=== PATIENT | male | born 1995 | race African-American/Black ===

== ENCOUNTER 2016-05-16 23:08 | Emergency (ER) | payer OTHER ==
[~2016-05-16 23:08] MED LIST: nohome
[2016-05-17] LABS: BASOPHIL COUNT 0.1 K/uL (0-0.1); EOSINOPHIL (%) 7.3 % (0-5); EOSINOPHIL COUNT 0.6 K/uL (0-0.3); HEMATOCRIT 44.5 % (38.0-50.0); IMMATURE GRANULOCYTE (%) 0.3 % (0.0-0.7); IMMATURE GRANULOCYTE COUNT 0.3 K/uL; LYMPHOCYTE COUNT 2.2 K/uL (1.0-2.8); MCH 28.7 PG (29.0-34.0); MCHC 35.7 G/DL (30.0-36.0); MCV 80.3 FL (86-99); MEAN PLAT.VOLUME 9.9 uM^3 (9.0-12.4); MONOCYTE (%) 5.6 % (3-12); MONOCYTE COUNT 0.5 K/uL (0-0.8); NEUTROPHIL (%) 61.2 % (45-76); NEUTROPHIL COUNT 5.3 K/uL (1.8-6.4); PLATELET COUNT 226 K/uL (156-360); RBC DIS.WIDTH-CV 13.1 % (11.8-14.6); RBC DIS.WIDTH-SD 38.1 % (39-53); RED BLOOD COUNT 5.54 M/uL (4.00-5.50); WHITE BLOOD COUNT 8.6 K/uL (4.1-10.2)
[2016-05-17 00:05] LABS: AMYLASE 74 IU/L (1-118); CHLORIDE 99 mEq/L (99-109); POTASSIUM 3.8 mEq/L (3.7-5.4); SODIUM 136 mEq/L (136-147)
[2016-05-17 00:07] LABS: GLUCOSE 87 mg/dL (70-99)
[2016-05-17 00:08] LABS: ANION GAP 12 MEQ/L (2-14)
[2016-05-17 00:10] LABS: GFR ESTIMATE (CALCULATED) > 59 mL/min/; SERUM ETHYL ALCOHOL 19 mg/dL
[2016-05-17 00:11] LABS: UREA NITROGEN (BUN) 7 mg/dL (9-23)
[2016-05-17 00:13] LABS: LIPASE 6 U/L (1.0-51.0)
[2016-05-17] MEDS ORDERED: KEFLEX500 MG PO (01:33)
[2016-05-17] MEDS ORDERED: PERCOCET 5/31 TABLET PO (01:33)
== END 2016-05-17 02:03 | disposition home or self-care (01) ==
LOC: TRA 23:08
PROVIDERS: Emergency Medicine
PROC: 0HQ1XZZ Repair Face Skin, External Approach (ICD-10-PCS; principal; 2016-05-16)
PROC: 0HQHXZZ Repair Right Upper Leg Skin, External Approach (ICD-10-PCS; 2016-05-16)
PROC: 0HQ8XZZ Repair Buttock Skin, External Approach (ICD-10-PCS; 2016-05-16)
PROC: 3E0234Z Introduction of Serum, Toxoid and Vaccine into Muscle, Percutaneous Approach (ICD-10-PCS; 2016-05-16)
DX: S71.001A Unspecified open wound, right hip, initial encounter (principal); S31.809A Unspecified open wound of unspecified buttock, initial encounter; S01.81XA Laceration without foreign body of other part of head, initial encounter; S00.81XA Abrasion of other part of head, initial encounter; Z23 Encounter for immunization; J45.909 Unspecified asthma, uncomplicated; F17.200 Nicotine dependence, unspecified, uncomplicated; Z71.6 Tobacco abuse counseling; X95.9XXA Assault by unspecified firearm discharge, initial encounter
CPT/HCPCS: 70450; 70486; 71260; 72129; 72132; 74177; 80048; 81003; 82150; 83690; 85025; 86850; 86900; 86901; 94640; 99281; 99285; G0480; J0690; J2270; J3010